=== PATIENT | female | born 1955 | race Caucasian/White ===

== ENCOUNTER 2018-02-09 12:59 | Day surgery (SDC) | payer BC ==
[~2018-02-09] VITALS: Ht 154.9 cm; Wt 59.0 kg
[~2018-02-09 12:59] MED LIST: ALPRAZOLAM0.25 MG PO; CAL MAG ZINC +1 EACH PO; ESTRACE42.5 GM VAGINAL
--- NOTE | 2018-02-09 16:16 | NUR ---
02/09/18 1616 Trisha Jones 1604 PT ARRIVED IN PACU SLEEPY. ABD SOFT.
--- NOTE | 2018-02-10 09:53 | OR ---
[facility] [address], [place] [address] Signed DATE OF OPERATION: 02/09/2018 SURGEON: Elias Nixon MD PREOPERATIVE DIAGNOSIS: Colon screening. POSTOPERATIVE DIAGNOSIS: Normal except for internal hemorrhoids. PROCEDURE: Total colonoscopy to cecum. ANESTHESIA: Intravenous sedation, fentanyl 150 mcg, Versed 6 mg. INDICATION: This 62-year-old white woman is a patient of Dr. Bower and also Dr. Allison in [place], [place] (director of career services). She is referred for screening colonoscopy. She has never had colonoscopy in the past. She is symptom-free. She has no family history of colon cancer. She is admitted at this time to undergo colonoscopy, understands the risks of bleeding, infection, and perforation. FINDINGS: The prep was excellent. Complete colonoscopy was undertaken to the cecum. Colonoscopy was somewhat challenging as she did have a somewhat tortuous colon, but was accomplished safely and clearly to the cecum. There was no sign of polyps, diverticular formation, colitis, or cancer. She did have some internal hemorrhoids. DESCRIPTION OF PROCEDURE: The patient was brought to the endoscopy suite and placed in lateral decubitus position, given intravenous sedation to the point of slurred speech and nystagmus. Digital rectal examination was normal. The Olympus video colonoscope was passed in the rectum and manipulated throughout the colon. Abdominal wall stabilization was required from time to time. Ultimately, the scope was passed to the cecum itself. Additional sedation was given as needed. The ileocecal valve and appendiceal orifice were normal. Scope was withdrawn from that point, clear and careful examination upon withdrawal of the scope showed no sign of polyps, diverticular formation, colitis, or cancer. Retroflex view of the rectum did Electronically Signed By: ELIAS NIXON MD 02/10/18 0953 PATIENT NAME: MARCELLA TOPETE OPERATIVE REPORT DATE OF : 59 REPORT #: [id number] PHYSICIAN: ELIAS NIXON MD PCP: NIVIA BOWER DO REPORT IS CONFIDENTIAL AND NOT TO BE RELEASED WITHOUT AUTHORIZATION [facility] [address], [place] [address] Signed show some internal hemorrhoidal changes. The scope was straightened, withdrawn, removed, and the patient was taken to recovery room in good condition. CONCLUDING DIAGNOSIS: Normal colon except for internal hemorrhoids. PLAN: Recommend high-fiber diet. She will return to the ongoing care of Dr. Bower and Dr. Allison in [place] as needed. Repeat colonoscopy will be recommended in 10 years, sooner if clinically indicated. MD ALONZO Reeder/JONYL /[id number] cc: MD Dr. Aurelio Fields Copies: SHAMIKA ALLISON MD ~ Electronically Signed By: ELIAS NIXON MD 02/10/18 0953 PATIENT NAME: MARCELLA TOPETE OPERATIVE REPORT DATE OF : 59 REPORT #: [id number] PHYSICIAN: ELIAS NIXON MD PCP: NIVIA BOWER DO REPORT IS CONFIDENTIAL AND NOT TO BE RELEASED WITHOUT AUTHORIZATION
== END 2018-02-09 17:10 | disposition home or self-care (01) ==
LOC: DS 12:59 → OPS 12:59
PROVIDERS: Surgery
PROC: 0DJD8ZZ Inspection of Lower Intestinal Tract, Via Natural or Artificial Opening Endoscopic (ICD-10-PCS; principal; 2018-02-09 14:00)
DX: Z12.11 Encounter for screening for malignant neoplasm of colon (principal); K64.8 Other hemorrhoids; K21.9 Gastro-esophageal reflux disease without esophagitis; Z88.8 Allergy status to other drugs, medicaments and biological substances; Z91.041 Radiographic dye allergy status; Z90.711 Acquired absence of uterus with remaining cervical stump; Z98.890 Other specified postprocedural states
CPT/HCPCS: 81001; 87088; 99153; G0500; J2250; J3010; J7120